=== PATIENT | male | born 1940 | race Caucasian/White ===

== ENCOUNTER 2016-10-03 13:26 | Emergency (ER) | payer MEDICARE, BC | END 2016-10-03 15:23 | disposition home or self-care (01) | LOC: ER 13:26 | DX: S00.03XA Contusion of scalp, initial encounter (principal); Z79.82 Long term (current) use of aspirin; Z79.899 Other long term (current) drug therapy; Z88.6 Allergy status to analgesic agent; Z88.8 Allergy status to other drugs, medicaments and biological substances; W18.09XA Striking against other object with subsequent fall, initial encounter ==